=== PATIENT | female | born 1980 | race Caucasian/White ===

== ENCOUNTER → 2020-06-05 | Outpatient (CLI) | payer OTHER ==
[~2020-06-05] MED LIST: BENTYL 20MG TAB20 MG PO; IBUPROFEN600 MG PO; LODINE CAP 300300 MG PO; ZOFRAN ODT 4 MG4 MG PO
== END ==
LOC: KOH-I 14:21
DX: M79.672 Pain in left foot (principal); M79.671 Pain in right foot
CPT/HCPCS: 73630

== ENCOUNTER → 2020-09-01 | Outpatient (CLI) | payer OTHER | LOC: KOH-I 10:56 | DX: R10.10 Upper abdominal pain, unspecified (principal); N20.0 Calculus of kidney; R93.5 Abnormal findings on diagnostic imaging of other abdominal regions, including retroperitoneum | CPT/HCPCS: 74176 ==

== ENCOUNTER 2020-09-02 00:24 | Emergency (ER) | payer OTHER ==
[~2020-09-02 00:24] MED LIST changes: -BENTYL 20MG TAB20 MG PO; -LODINE CAP 300300 MG PO; -ZOFRAN ODT 4 MG4 MG PO
[2020-09-02 02:07] LABS: HEMOGLOBIN 13.7 gm/dl (12.3-15.3); RED BLOOD COUNT 4.86 M/UL (4.00-5.10); WHITE BLOOD COUNT 9.9 K/UL (4.5-11.0)
[2020-09-02 02:35] LABS: BUN/CREATININE RATIO 19 (0-10)
[2020-09-02] MEDS ORDERED: LODINE CAP 300300 MG PO (03:21)
[2020-09-02] MEDS ORDERED: BENTYL 20MG TAB20 MG PO (03:21)
[2020-09-02] MEDS ORDERED: ZOFRAN ODT 4 MG4 MG PO (03:21)
== END 2020-09-02 04:35 | disposition home or self-care (01) ==
LOC: ER1 00:24
PROVIDERS: Family Medicine
DX: R10.32 Left lower quadrant pain (principal); Z87.442 Personal history of urinary calculi
CPT/HCPCS: 80053; 81015; 83690; 84703; 85025; 87086; 96374; 96375; 99284; J1885; J2405; J7030